=== PATIENT | female | born 1945 | race Caucasian/White ===

== ENCOUNTER 2018-02-20 14:34 | Outpatient (CLI) | payer BC | END 2018-02-20 14:35 | disposition home or self-care (01) | LOC: BICMAMMO 14:34 | PROVIDERS: ATTEND Obstetrics & Gynecology | DX: Z12.31 Encounter for screening mammogram for malignant neoplasm of breast (principal); R92.1 Mammographic calcification found on diagnostic imaging of breast; Z80.3 Family history of malignant neoplasm of breast | CPT/HCPCS: 77063; 77067 ==

== ENCOUNTER 2019-12-27 10:54 | Outpatient (CLI) | payer MEDICARE ==
--- NOTE | 2019-12-27 13:58 | RAD ---
RIGHT HIP TWO VIEW: 12/27/19 HISTORY: Pain. COMPARISON: None. FINDINGS: The right obturator ring is intact. There is moderate acetabular osteophyte formation. Moderate dege nerative disease of both SI joints. Phleboliths throughout the pelvis. IMPRESSION: Degenerative changes. No acute osseous abnormality. POS: HOME
--- NOTE | 2019-12-27 14:04 | RAD ---
LEFT KNEE FOUR VIEW: 12/27/19 HISTORY: Pain. COMPARISON: None. FINDINGS: No significant joint effusion. Moderate vascular calcifications. There is relatively high grade trico mpartmental degenerative change. Mild lateral subluxation of the patella. IMPRESSION: Relative high grade tricompartmental degenerative change, greatest in the lateral and patellofemoral compartment. POS: HOME
== END 2019-12-27 10:55 | disposition home or self-care (01) ==
LOC: BICRAD 10:54
PROVIDERS: ATTEND Family Medicine
DX: M25.551 Pain in right hip (principal); M25.562 Pain in left knee; G89.29 Other chronic pain; M17.12 Unilateral primary osteoarthritis, left knee; M16.11 Unilateral primary osteoarthritis, right hip

== ENCOUNTER 2020-01-21 09:35 | Outpatient (CLI) | payer MEDICARE ==
--- NOTE | 2020-01-21 10:48 | MRI ---
MRI BRAIN WITHOUT CONTRAST: HISTORY: Memory loss FINDINGS: No restricted diffusion is seen. There is cortical atrophy. There are multiple foci of T2 prolongatio n in the periventricular white matter, consistent with chronic small vessel ischemic disease. The ventricular size is appropriate and the basilar cisterns are patent. No evidence of acute infarct, hemorrhage, midline shift or abnormal extra-axial fluid collections is seen. There is mild mucosal disease in the paranasal sinuses. IMPRESSION: Chronic changes. No evidence of acute intracranial process.
== END 2020-01-21 09:36 | disposition home or self-care (01) ==
LOC: BICMRI 09:35
PROVIDERS: ATTEND Family Medicine
DX: R41.3 Other amnesia (principal)
CPT/HCPCS: 70551

== ENCOUNTER 2020-07-22 15:35 | Emergency (ER) | payer MEDICARE ==
[2020-07-22 16:35] LABS: Bacteria/HPF None Seen HPF (None Seen); Bilirubin Negative (Negative); Blood, Urine 3+ (Negative); Clarity Clear (Clear); Glucose, Urine (Dipstick) Normal (Negative); Ketone, Urine 60 mg/dL (Negative); Leukocyte Negative Leu/uL (Negative); Nitrite Negative (Negative); Protein, Urine (Dipstick) 30 mg/dL (Neg-Trace); RBC/HPF Greater than 50 HPF (0-3); Specific Gravity, Urine 1.029 (1.002-1.036); Squamous Epithelial None Seen HPF (0-3); Urobilinogen Normal mg/dL (Less than 2); WBC/HPF 0-3 HPF (0-3); pH, Urine 5.5 (5.0-9.0)
[2020-07-22 16:37] LABS: #Eosinphils 0.1 thou/uL (0.0-0.7); #Lymphocytes 1.5 thou/uL (1.20-3.40); #Monocytes 0.4 thou/uL (0.11-0.59); #Neutrophils 6.3 thou/uL (1.40-6.50); %Basophils 0.4 % (0.0-1.0); %Eosinophils 1.1 % (0.0-10.0); %Monocytes 5.3 % (0.0-10.0); %Neutrophils 75.2 % (42.0-75.0); Hemoglobin 14.5 g/dL (12.0-16.0); Mean Corpuscular HGB CONC 32.2 g/dL (32.0-36.0); Mean Corpuscular Hemoglobin 29.1 pg (27.0-31.0); Mean Corpuscular Volume 90.2 fL (78.0-98.0); Mean Platelet Volume 8.2 fL (7.4-10.4); Platelet Count 233 thou/uL (130-400); RBC Distribution Width 11.5 % (11.5-14.5); Red Blood Cell (RBC) Count 4.97 mill/uL (4.20-5.40); White Blood Cell (WBC) Count 8.3 thou/uL (4.8-10.8)
--- NOTE | 2020-07-22 16:44 | RAD ---
EXAM: XR Pelvis AP STANDARD PROVIDED CLINICAL HISTORY: Pain FINDINGS: There is no evidence for fracture or other acute osseous abnormality. Alignment appears anatomic. Luz nt spaces appear preserved. IMPRESSION: No evidence for an acute osseous abnormality. If there is persistent clinical concern, conservative m anagement and follow-up imaging advised.
--- NOTE | 2020-07-22 16:44 | RAD ---
RADIOGRAPH RIGHT LEG TIBIA-FIBULA 2 VIEWS: DATE: 07/22/2020 HISTORY: Traumatic injury to Right [age]-year-old female status post fall. FINDINGS: There is no evidence of fracture of tibia or fibula. IMPRESSION: Negative.
--- NOTE | 2020-07-22 16:44 | RAD ---
EXAM: XR Knee Rt 4 View STANDARD PROVIDED CLINICAL HISTORY: Pain FINDINGS: There is no evidence for fracture or other acute osseous abnormality. Alignment appears anatomic. Pro minent patellofemoral joint space narrowing. Vascular calcifications are noted. Intra-articular bodies are seen at the posterior aspect of the knee. IMPRESSION: No evidence for an acute osseous abnormality. If there is persistent clinical concern, conservative m anagement and follow-up imaging advised.
--- NOTE | 2020-07-22 16:45 | RAD ---
RADIOGRAPH CHEST 1 VIEW: DATE: 07/22/2020 HISTORY: 74-year-old female status post acute chest trauma from fall FINDINGS: There are no airspace densities, pulmonary edema, pneumothorax, or cardiomegaly. The lateral costophr enic angles are sharp. IMPRESSION: No acute cardiopulmonary findings.
[2020-07-22 16:55] LABS: ALT (SGPT) 31 U/L (8-55); AST (SGOT) 43 U/L (5-34); Alkaline Phosphatase 89 U/L (40-110); Anion Gap 11 mmol/L (10-20); BUN (Urea Nitrogen) 18 mg/dL (9.8-20.1); Bilirubin, Total 1.1 mg/dL (0.2-1.2); Calc. Creatinine Clearance 0 mL/min (70-130); Calcium 9.3 mg/dL (7.8-10.44); Carbon Dioxide 32 mmol/L (23-31); Chloride 104 mmol/L (98-107); Glucose 124 mg/dL (83-110); Potassium 3.5 mmol/L (3.5-5.1); Sodium 143 mmol/L (136-145)
[2020-07-22] MEDS ORDERED: Acetaminophen 500 MG TAB ONE (17:09)
--- NOTE | 2020-07-22 17:10 | CT ---
Exam: Head CT without contrast HISTORY: Altered mental status. Patient fell today. COMPARISON: none FINDINGS: Hemorrhage: No intraparenchymal hemorrhage or extra-axial hematoma. Brain parenchyma: Cortical boyer-white matter differentiation is preserved. No mass effect or midline shift. Basilar cisterns are patent.Extensive chronic small vessel ischemic changes of white matter. Ventricular system: Ventricles and sulci are patent and symmetric. Calvarium: Intact. Sinuses and mastoid air cells: Left sphenoid sinus and ethmoidal mucosal disease. IMPRESSION: No intracranial post traumatic sequelae.
== END 2020-07-22 18:04 | disposition home or self-care (01) ==
LOC: ERS 15:35
DX: S70.01XA Contusion of right hip, initial encounter (principal); R31.9 Hematuria, unspecified; M25.561 Pain in right knee; W18.09XA Striking against other object with subsequent fall, initial encounter
CPT/HCPCS: 51701; 70450; 71045; 72170; 80053; 81003; 81015; 85025; 87086; 93005

== ENCOUNTER 2021-08-13 00:50 | Inpatient (IN) | payer MEDICARE ==
[2021-08-13 01:47] LABS: #Eosinphils 0.1 thou/uL (0.0-0.7); #Lymphocytes 2.1 thou/uL (1.20-3.40); #Monocytes 0.9 thou/uL (0.11-0.59); #Neutrophils 7.3 thou/uL (1.40-6.50); %Basophils 0.1 % (0.0-1.0); %Eosinophils 0.5 % (0.0-10.0); %Lymphocytes 20.3 % (21.0-51.0); %Monocytes 8.9 % (0.0-10.0); %Neutrophils 70.2 % (42.0-75.0); Mean Corpuscular HGB CONC 32.4 g/dL (32.0-36.0); Mean Corpuscular Hemoglobin 29.2 pg (27.0-31.0); Mean Corpuscular Volume 90.3 fL (78.0-98.0); Mean Platelet Volume 7.9 fL (7.4-10.4); Platelet Count 266 thou/uL (130-400); RBC Distribution Width 11.3 % (11.5-14.5); Red Blood Cell (RBC) Count 5.13 mill/uL (4.20-5.40); White Blood Cell (WBC) Count 10.3 thou/uL (4.8-10.8)
[2021-08-13 02:10] LABS: ALT (SGPT) 32 U/L (8-55); AST (SGOT) 31 U/L (5-34); Albumin 3.7 g/dL (3.4-4.8); Alkaline Phosphatase 89 U/L (40-110); Anion Gap 16 mmol/L (10-20); BUN (Urea Nitrogen) 18 mg/dL (9.8-20.1); Bilirubin, Total 0.6 mg/dL (0.2-1.2); CK (CPK) 304 U/L (29-168); Calc. Creatinine Clearance 0 mL/min (70-130); Calcium 9.4 mg/dL (7.8-10.44); Carbon Dioxide 25 mmol/L (23-31); Chloride 104 mmol/L (98-107); Globulin 3.4 g/dL (2.4-3.5); Glucose 118 mg/dL (83-110); Potassium 4.1 mmol/L (3.5-5.1); Protein, Total 7.1 g/dL (5.8-8.1); Sodium 141 mmol/L (136-145)
[2021-08-13] MEDS ORDERED: Aspirin 300 MG Suppository ONE (02:35)
[2021-08-13] MEDS ORDERED: hydrALAZINE 20 MG/ML VIAL ONE ×2 (02:35→04:17)
[2021-08-13 02:40] LABS: CKMB 12.3 ng/mL (0-6.6)
[2021-08-13 05:17] LABS: Troponin I 0.079 ng/mL (< 0.028)
[2021-08-13 08:11] LABS: Troponin I 0.079 ng/mL (< 0.028)
[2021-08-13] MEDS ORDERED: Ondansetron PF 4 MG/2 ML Vial IVP PRN (09:59)
[2021-08-13] MEDS ORDERED: Ondansetron ODT 4 MG TAB PO PRN (09:59)
[2021-08-13] MEDS ORDERED: Calcium Carbonate 500 MG ChewTAB PO PRN (09:59)
[2021-08-13] MEDS ORDERED: Acetaminophen 325 MG TAB PO PRN (09:59)
[2021-08-13] MEDS ORDERED: Acetaminophen 650 MG Suppository PR PRN (09:59)
[2021-08-13] MEDS ORDERED: Nitroglycerin 0.4 MG TAB (25 Tab Bottle) SL PRN (10:03)
[2021-08-13] MEDS: Sodium Chloride 0.9% 1,000 ML IV SCH (10:30)
[2021-08-13 14:06] LABS: Bilirubin Negative (Negative); Blood, Urine Negative (Negative); Clarity Extra Turbid (Clear); Glucose, Urine (Dipstick) Normal (Negative); Ketone, Urine Negative (Negative); Leukocyte 500 Leu/uL (Negative); Nitrite 2+ (Negative); Protein, Urine (Dipstick) 70 mg/dL (Neg-Trace); Specific Gravity, Urine 1.022 (1.002-1.036); Squamous Epithelial None Seen HPF (0-3); WBC/HPF Greater than 50 HPF (0-3)
[2021-08-13 14:09] LABS: Bacteria/HPF 1+ HPF (None Seen)
[2021-08-13] MEDS: Nitroglycerin 2% Ointment 1 INCH/1 GM Packet TOP SCH ×2 (14:30→21:28)
[2021-08-13] MEDS ORDERED: Nitroglycerin 2% Ointment 1 INCH/1 GM Packet ONE (15:02)
[2021-08-13 18:25] VITALS: BMI 23.1
[2021-08-13] MEDS: Enoxaparin Sodium 30 MG/0.3 ML SYRINGE SC SCH (21:29)
[2021-08-13] MEDS: Bisacodyl 10 MG SUPP PR SCH (21:29)
[2021-08-13] MEDS: Famotidine 20 MG TAB PO SCH (21:37)
[2021-08-13] MEDS: Senokot S 8.6-50 MG TAB PO SCH (21:38)
[2021-08-13] MEDS: Polyethylene Glycol 3350 17 GM Packet PO SCH (21:38)
[2021-08-13] MEDS ORDERED: Mineral Oil ENEMA PR SCH (21:45)
[2021-08-14] MEDS ORDERED: Metoprolol Tartrate 5 MG/5 ML VIAL IVP SCH (00:06)
[2021-08-14] MEDS: cefTRIAXone\\ROCEPHIN 1 GM in Sodium Chloride 0.9% 100 ML IVPB SCH ×2 (00:25→17:49)
[2021-08-14 01:40] LABS: Troponin I 0.054 ng/mL (< 0.028)
[2021-08-14] MEDS ORDERED: Enoxaparin Sodium 30 MG/0.3 ML SYRINGE SC SCH (01:45)
[2021-08-14] MEDS ORDERED: Diltiazem 125 MG in Sodium Chloride 0.9% 100 ML IVPB SCH (01:45)
[2021-08-14] MEDS: Sodium Chloride 0.9% 1,000 ML IV SCH (01:57)
[2021-08-14 02:24] LABS: #Basophils 0.1 thou/uL (0.0-0.2); #Lymphocytes 2.9 thou/uL (1.20-3.40); #Monocytes 0.9 thou/uL (0.11-0.59); #Neutrophils 5.6 thou/uL (1.40-6.50); %Basophils 0.6 % (0.0-1.0); %Eosinophils 0.4 % (0.0-10.0); %Lymphocytes 30.8 % (21.0-51.0); %Monocytes 9.6 % (0.0-10.0); %Neutrophils 58.7 % (42.0-75.0); Hemoglobin 13.9 g/dL (12.0-16.0); Mean Corpuscular HGB CONC 32.4 g/dL (32.0-36.0); Mean Corpuscular Hemoglobin 29.8 pg (27.0-31.0); Mean Corpuscular Volume 92.1 fL (78.0-98.0); Mean Platelet Volume 7.8 fL (7.4-10.4); Platelet Count 257 thou/uL (130-400); RBC Distribution Width 11.7 % (11.5-14.5); Red Blood Cell (RBC) Count 4.67 mill/uL (4.20-5.40); White Blood Cell (WBC) Count 9.6 thou/uL (4.8-10.8)
[2021-08-14 02:50] LABS: ALT (SGPT) 28 U/L (8-55); AST (SGOT) 27 U/L (5-34); Albumin 3.4 g/dL (3.4-4.8); Alkaline Phosphatase 83 U/L (40-110); Anion Gap 14 mmol/L (10-20); BUN (Urea Nitrogen) 19 mg/dL (9.8-20.1); Bilirubin, Total 1.1 mg/dL (0.2-1.2); Calc. Creatinine Clearance 80 mL/min (70-130); Calcium 9.4 mg/dL (7.8-10.44); Carbon Dioxide 25 mmol/L (23-31); Chloride 111 mmol/L (98-107); Globulin 3.5 g/dL (2.4-3.5); Glucose 107 mg/dL (83-110); Magnesium 1.9 mg/dL (1.6-2.6); Phosphorus 3.8 mg/dL (2.3-4.7); Potassium 3.8 mmol/L (3.5-5.1); Protein, Total 6.9 g/dL (5.8-8.1); Sodium 146 mmol/L (136-145)
[2021-08-14] MEDS: Nitroglycerin 2% Ointment 1 INCH/1 GM Packet TOP SCH (06:44)
[2021-08-14] MEDS ORDERED: Magnesium 2 GM/50 ML 2 GM in Premix Bag 1 BAG IVPB SCH (08:15)
[2021-08-14] MEDS: Aspirin Chewable 81 MG TAB PO SCH (08:41)
[2021-08-14] MEDS: Famotidine 20 MG TAB PO SCH ×2 (08:41→20:15)
[2021-08-14] MEDS: Senokot S 8.6-50 MG TAB PO SCH ×2 (08:42→20:15)
[2021-08-14] MEDS ORDERED: Iopamidol 370 76% 100 ML VIAL ONE (09:41)
[2021-08-14 12:11] LABS: SARS-CoV-2 PCR by NAA Not Detected (NotDetected)
[2021-08-14] MEDS: Dextrose 5 %-0.45 % NaCl 1,000 ML IV SCH (12:12)
[2021-08-14] MEDS: Polyethylene Glycol 3350 17 GM Packet PO SCH (20:15)
[2021-08-14] MEDS: Metoprolol Tartrate 25 MG TAB PO SCH (20:15)
[2021-08-14] MEDS: traZODone HCl 50 MG TAB PO SCH (20:15)
[2021-08-14] MEDS: Enoxaparin Sodium 30 MG/0.3 ML SYRINGE SC SCH (20:16)
[2021-08-14] MEDS: Bisacodyl 10 MG SUPP PR SCH (20:16)
[2021-08-15] MEDS: Dextrose 5 %-0.45 % NaCl 1,000 ML IV SCH (02:59)
[2021-08-15 05:09] LABS: #Eosinphils 0.1 thou/uL (0.0-0.7); #Lymphocytes 2.4 thou/uL (1.20-3.40); #Monocytes 0.8 thou/uL (0.11-0.59); %Basophils 0.2 % (0.0-1.0); %Eosinophils 0.8 % (0.0-10.0); %Lymphocytes 29.2 % (21.0-51.0); %Monocytes 9.3 % (0.0-10.0); %Neutrophils 60.4 % (42.0-75.0); Hemoglobin 12.8 g/dL (12.0-16.0); Mean Corpuscular HGB CONC 33.1 g/dL (32.0-36.0); Mean Corpuscular Hemoglobin 30.4 pg (27.0-31.0); Mean Corpuscular Volume 91.6 fL (78.0-98.0); Mean Platelet Volume 8.5 fL (7.4-10.4); Platelet Count 220 thou/uL (130-400); RBC Distribution Width 11.4 % (11.5-14.5); White Blood Cell (WBC) Count 8.2 thou/uL (4.8-10.8)
[2021-08-15 05:27] LABS: Anion Gap 11 mmol/L (10-20); BUN (Urea Nitrogen) 16 mg/dL (9.8-20.1); CRP (Inflammatory) 4.99 mg/dL (= or < 0.5); Calc. Creatinine Clearance 85 mL/min (70-130); Calcium 8.7 mg/dL (7.8-10.44); Carbon Dioxide 24 mmol/L (23-31); Chloride 111 mmol/L (98-107); Glucose 113 mg/dL (83-110); Sodium 143 mmol/L (136-145)
[2021-08-15] MEDS ORDERED: Electrolyte Replacement Protocol FS PRN (06:15)
[2021-08-15] MEDS ORDERED: Potassium Chloride 20 MEQ TAB PO SCH (06:30)
[2021-08-15] MEDS ORDERED: 1/2 NS w/KCL 20 mEq 1,000 ML IV SCH ×2 (08:00→14:34)
[2021-08-15] MEDS: Famotidine 20 MG TAB PO SCH (09:12)
[2021-08-15] MEDS: Senokot S 8.6-50 MG TAB PO SCH ×2 (09:12→21:08)
[2021-08-15] MEDS: Metoprolol Tartrate 25 MG TAB PO SCH ×2 (09:13→21:09)
[2021-08-15] MEDS: Divalproex Sodium 125 mg Sprinkle Capsule PO SCH (09:13)
[2021-08-15] MEDS: Aspirin Chewable 81 MG TAB PO SCH (09:13)
[2021-08-15] MEDS ORDERED: Potassium Chloride 20 MEQ in Premix Bag 1 BAG IVPB SCH (09:15)
[2021-08-15 14:25] LABS: Potassium 4.2 mmol/L (3.5-5.1)
[2021-08-15] MEDS: Cefdinir 300 MG CAP PO SCH ×3 (15:58→21:09)
[2021-08-15] MEDS: Loratadine 10 MG TAB PO SCH ×2 (15:58→16:07)
[2021-08-15] MEDS: traZODone HCl 50 MG TAB PO SCH (21:08)
[2021-08-15] MEDS: Bisacodyl 10 MG SUPP PR SCH (21:08)
[2021-08-15] MEDS: Enoxaparin Sodium 30 MG/0.3 ML SYRINGE SC SCH (21:10)
[2021-08-15] MEDS: Polyethylene Glycol 3350 17 GM Packet PO SCH (21:11)
[2021-08-16] MEDS: Cefdinir 300 MG CAP PO SCH ×3 (10:20→22:10)
[2021-08-16] MEDS: Senokot S 8.6-50 MG TAB PO SCH ×3 (10:20→22:12)
[2021-08-16] MEDS: Divalproex Sodium 125 mg Sprinkle Capsule PO SCH (10:20)
[2021-08-16] MEDS: Metoprolol Tartrate 25 MG TAB PO SCH ×3 (10:21→22:11)
[2021-08-16] MEDS: Aspirin Chewable 81 MG TAB PO SCH (10:21)
[2021-08-16] MEDS: Loratadine 10 MG TAB PO SCH (10:21)
[2021-08-16] MEDS: Enoxaparin Sodium 30 MG/0.3 ML SYRINGE SC SCH (21:49)
[2021-08-16] MEDS: Bisacodyl 10 MG SUPP PR SCH (21:50)
[2021-08-16] MEDS: traZODone HCl 50 MG TAB PO SCH ×2 (21:50→22:11)
[2021-08-16] MEDS: Polyethylene Glycol 3350 17 GM Packet PO SCH ×2 (21:51→22:11)
[2021-08-17] MEDS: Divalproex Sodium 125 mg Sprinkle Capsule PO SCH (10:23)
[2021-08-17] MEDS: Senokot S 8.6-50 MG TAB PO SCH ×2 (10:23→20:59)
[2021-08-17] MEDS: Cefdinir 300 MG CAP PO SCH ×2 (10:24→20:59)
[2021-08-17] MEDS: Metoprolol Tartrate 25 MG TAB PO SCH ×2 (10:24→21:00)
[2021-08-17] MEDS: Aspirin Chewable 81 MG TAB PO SCH (10:24)
[2021-08-17] MEDS: Loratadine 10 MG TAB PO SCH (10:24)
[2021-08-17] MEDS: Enoxaparin Sodium 30 MG/0.3 ML SYRINGE SC SCH (20:58)
[2021-08-17] MEDS: Bisacodyl 10 MG SUPP PR SCH (20:58)
[2021-08-17] MEDS: traZODone HCl 50 MG TAB PO SCH (20:59)
[2021-08-17] MEDS: Polyethylene Glycol 3350 17 GM Packet PO SCH ×2 (21:00→21:08)
[2021-08-18] MEDS: Divalproex Sodium 125 mg Sprinkle Capsule PO SCH (08:26)
[2021-08-18] MEDS: Loratadine 10 MG TAB PO SCH (08:27)
[2021-08-18] MEDS: Cefdinir 300 MG CAP PO SCH (08:27)
[2021-08-18] MEDS: Aspirin Chewable 81 MG TAB PO SCH (08:27)
[2021-08-18] MEDS: Senokot S 8.6-50 MG TAB PO SCH (08:27)
[2021-08-18] MEDS: Metoprolol Tartrate 25 MG TAB PO SCH (09:51)
[2021-08-18 15:38] VITALS: BP 134/71; TEMP 98.1
== END 2021-08-18 19:39 | DRG 871 ==
LOC: ERS 00:50 → ERHOLD 02:53 → 2NO 17:39 → OBSVTOIN 08-14 17:09 → SURG B 08-17 23:29
PROVIDERS: ADMIT Internal Medicine; ATTEND Internal Medicine
DX: A41.9 Sepsis, unspecified organism (principal); G93.41 Metabolic encephalopathy; N39.0 Urinary tract infection, site not specified; Z66 Do not resuscitate; Z20.822 Contact with and (suspected) exposure to COVID-19; G30.9 Alzheimer's disease, unspecified; R13.10 Dysphagia, unspecified; I07.1 Rheumatic tricuspid insufficiency; I11.9 Hypertensive heart disease without heart failure; R56.9 Unspecified convulsions; F02.80 Dementia in other diseases classified elsewhere, unspecified severity, without behavioral disturbance, psychotic disturbance, mood disturbance, and anxiety; K56.41 Fecal impaction; I48.91 Unspecified atrial fibrillation; E83.42 Hypomagnesemia; E87.6 Hypokalemia; Z91.81 History of falling
CPT/HCPCS: 36415; 36416; 51701; 71045; 71275; 74018; 74230; 80048; 80053; 80164; 81003; 81015; 82550; 82553; 82607; 82746; 83735; 84100; 84484; 85025; 86140; 87077; 87086; 87186; 93005; 93010; 93306; 96365; 96366; 96372; 96374; 96375; 96376; G0378; J0360; J0696; J1650; J1956; J3475; J3480; J3490; J7042; J7050; Q9967; U0003; U0005

== ENCOUNTER 2022-04-16 11:40 | Observation (INO) | payer MEDICARE, OTHER ==
[~2022-04-16 11:40] MED LIST: Iopamidol-370 76% 500 ML 1 ML ONE
[2022-04-16 12:47] LABS: #Basophils 0.1 thou/uL (0.0-0.2); #Eosinphils 0.1 thou/uL (0.0-0.7); #Monocytes 0.2 thou/uL (0.11-0.59); #Neutrophils 4.6 thou/uL (1.40-6.50); %Eosinophils 0.8 % (0.0-10.0); %Lymphocytes 28.6 % (21.0-51.0); %Monocytes 2.8 % (0.0-10.0); %Neutrophils 66.8 % (42.0-75.0); Hemoglobin 15.8 g/dL (12.0-16.0); Mean Corpuscular HGB CONC 35.1 g/dL (32.0-36.0); Mean Corpuscular Hemoglobin 33.2 pg (27.0-31.0); Mean Corpuscular Volume 94.5 fL (78.0-98.0); Mean Platelet Volume 8.9 fL (7.4-10.4); Platelet Count 167 thou/uL (130-400); RBC Distribution Width 11.7 % (11.5-14.5); Red Blood Cell (RBC) Count 4.77 mill/uL (4.20-5.40); White Blood Cell (WBC) Count 6.9 thou/uL (4.8-10.8)
[2022-04-16 12:56] LABS: Bilirubin Negative (Negative); Blood, Urine Negative (Negative); Clarity Clear (Clear); Glucose, Urine (Dipstick) Normal (Negative); Ketone, Urine 10 mg/dL (Negative); Leukocyte Negative Leu/uL (Negative); Nitrite Negative (Negative); Protein, Urine (Dipstick) Negative (Neg-Trace); Specific Gravity, Urine 1.022 (1.002-1.036); Urobilinogen Normal mg/dL (Less than 2)
[2022-04-16 13:08] LABS: ALT (SGPT) 19 U/L (8-55); AST (SGOT) 25 U/L (5-34); Albumin 4.4 g/dL (3.4-4.8); Alkaline Phosphatase 106 U/L (40-110); Anion Gap 18 mmol/L (10-20); BUN (Urea Nitrogen) 18 mg/dL (9.8-20.1); Bilirubin, Total 0.7 mg/dL (0.2-1.2); Calc. Creatinine Clearance 0 mL/min (70-130); Calcium 9.7 mg/dL (7.8-10.44); Carbon Dioxide 23 mmol/L (23-31); Chloride 107 mmol/L (98-107); Estimated GFR 91; Globulin 3.1 g/dL (2.4-3.5); Glucose 98 mg/dL (83-110); Potassium 4.5 mmol/L (3.5-5.1); Protein, Total 7.5 g/dL (5.8-8.1); Sodium 143 mmol/L (136-145)
[2022-04-16] MEDS ORDERED: Acetaminophen 650 MG Suppository PR PRN (15:39)
[2022-04-16] MEDS ORDERED: Lorazepam (BATCHED) 2 MG/ML SYR SLOW IVP PRN (15:41)
[2022-04-16] MEDS ORDERED: levETIRAcetam in NS 500 MG in Premix Bag 1 BAG IVPB SCH (15:45)
[2022-04-16] MEDS ORDERED: Metoclopramide HCl 10 MG/2 ML VIAL IVP PRN (15:51)
[2022-04-16] MEDS ORDERED: Morphine 2 MG/ML VIAL SLOW IVP PRN (15:51)
[2022-04-16 16:12] LABS: Lactic Acid 1.3 mmol/L (0.5-2.2)
[2022-04-16] MEDS: Dextrose 5 %-0.45 % NaCl 1,000 ML IV SCH (18:23)
[2022-04-16 18:24] VITALS: BMI 21.7
[2022-04-16] MEDS: levETIRAcetam 500 MG/5 ML VIAL SLOW IVP SCH (20:17)
[2022-04-17 05:32] LABS: #Eosinphils 0.1 thou/uL (0.0-0.7); #Lymphocytes 3.2 thou/uL (1.20-3.40); #Monocytes 0.8 thou/uL (0.11-0.59); #Neutrophils 5.4 thou/uL (1.40-6.50); %Basophils 0.3 % (0.0-1.0); %Eosinophils 0.5 % (0.0-10.0); %Lymphocytes 33.9 % (21.0-51.0); %Neutrophils 57.2 % (42.0-75.0); Hemoglobin 13.2 g/dL (12.0-16.0); Mean Corpuscular HGB CONC 32.1 g/dL (32.0-36.0); Mean Corpuscular Hemoglobin 30.6 pg (27.0-31.0); Mean Corpuscular Volume 95.4 fL (78.0-98.0); Platelet Count 187 thou/uL (130-400); RBC Distribution Width 11.7 % (11.5-14.5); Red Blood Cell (RBC) Count 4.31 mill/uL (4.20-5.40); White Blood Cell (WBC) Count 9.4 thou/uL (4.8-10.8)
[2022-04-17 05:55] LABS: Anion Gap 13 mmol/L (10-20); BUN (Urea Nitrogen) 12 mg/dL (9.8-20.1); Calc. Creatinine Clearance 77 mL/min (70-130); Carbon Dioxide 22 mmol/L (23-31); Chloride 109 mmol/L (98-107); Estimated GFR 93; Glucose 95 mg/dL (83-110); Potassium 3.5 mmol/L (3.5-5.1); Sodium 140 mmol/L (136-145)
[2022-04-17] MEDS: Dextrose 5 %-0.45 % NaCl 1,000 ML IV SCH ×2 (06:02→21:13)
[2022-04-17] MEDS: levETIRAcetam 500 MG/5 ML VIAL SLOW IVP SCH ×2 (06:02→21:13)
[2022-04-17] MEDS ORDERED: Mineral Oil ENEMA PR SCH (08:00)
[2022-04-17] MEDS ORDERED: FLU VACC QS2022-23(65YR UP)/PF 240 MCG/0.7 ML SYRINGE IM ONE ×2 (09:00→21:30)
[2022-04-18] MEDS ORDERED: levETIRAcetam 500 MG/5 ML VIAL SLOW IVP SCH (08:00)
[2022-04-18] MEDS: Dextrose 5 %-0.45 % NaCl 1,000 ML IV SCH (11:41)
[2022-04-18 19:36] VITALS: BP 142/85; TEMP 98.9
[2022-04-18] MEDS ORDERED: levETIRAcetam 500 mg/5 ml Oral Solution PO SCH (21:00)
== END 2022-04-18 20:01 ==
LOC: ERS 11:40 → NEURO 15:24
PROVIDERS: ADMIT Student in an Organized Health Care Education/Training Program; ATTEND Student in an Organized Health Care Education/Training Program
DX: R56.9 Unspecified convulsions (principal); G30.9 Alzheimer's disease, unspecified; F02.80 Dementia in other diseases classified elsewhere, unspecified severity, without behavioral disturbance, psychotic disturbance, mood disturbance, and anxiety; I10 Essential (primary) hypertension; R94.31 Abnormal electrocardiogram [ECG] [EKG]; G89.29 Other chronic pain; R23.3 Spontaneous ecchymoses; N13.30 Unspecified hydronephrosis; N13.4 Hydroureter; K59.00 Constipation, unspecified; G92.8 Other toxic encephalopathy; N39.0 Urinary tract infection, site not specified; R74.02 Elevation of levels of lactic acid dehydrogenase [LDH]; Z23 Encounter for immunization; Z51.5 Encounter for palliative care; Z66 Do not resuscitate; Z79.899 Other long term (current) drug therapy; Z88.0 Allergy status to penicillin; Z20.822 Contact with and (suspected) exposure to COVID-19
CPT/HCPCS: 51701; 70450; 71045; 74177; 80048; 80053; 81003; 83605; 84484; 85025 ×2; 90662; 93005; 95712; 95816; 95819 ×2; 95957 ×2; 96374; 96376; 99285; G0008; G0378 ×4; J1953 ×3; U0003; U0005; 36415; 90471; J7042; Q9967